=== PATIENT | male | born 1950 | race Caucasian/White ===

== ENCOUNTER → 2017-04-02 | Outpatient (CLI) | payer BC, OTHER ==
--- NOTE | 2017-04-02 15:21 | CR ---
EXAMINATION: Left hand HISTORY: Contusion COMPARISON: 03/19/2017 TECHNIQUE: 3 views FINDINGS: There is no acute osseous abnormality, dislocation, or fracture identified. Bone mineraliz ation appears grossly normal. Mild osteophytic changes are noted within the interphalangeal joints a nd MCP joints. This is most prominent at the first MCP joint. There is no fracture or acute osseous abnormality. The radiocarpal alignment is preserved. Dorsal soft tissue swelling is noted overlying the hand. IMPRESSION: Soft tissue swelling and degenerative changes without acute osseous abnormality.
== END ==
LOC: MW.CHPS 11:23
PROVIDERS: ATTEND Plastic Surgery
DX: S60.222A Contusion of left hand, initial encounter (principal); R22.32 Localized swelling, mass and lump, left upper limb
CPT/HCPCS: 73130-26-LT; 73130-LT

== ENCOUNTER 2023-02-11 12:06 | Day surgery (SDC) | payer MEDICARE, BC, OTHER ==
[~2023-02-11 12:06] MED LIST: Lactated Ringers 1,000 ML IV SCH
[2023-02-11] MEDS ORDERED: Lidocaine 2% 5 ML SDV ONE (12:53)
[2023-02-11] MEDS ORDERED: Propofol 200 MG/20 ML SDV ONE (12:53)
[2023-02-11] MEDS ORDERED: Lactated Ringers 1,000 ML IV SCH (13:30)
[2023-02-11 15:13] VITALS: BP 98/56; PULSE 76
== END 2023-02-11 14:20 | disposition home or self-care (01) ==
LOC: MW.SDS 12:06
PROVIDERS: ATTEND Surgery
DX: D12.8 Benign neoplasm of rectum (principal); K57.30 Diverticulosis of large intestine without perforation or abscess without bleeding; M06.9 Rheumatoid arthritis, unspecified; N42.9 Disorder of prostate, unspecified; G47.30 Sleep apnea, unspecified; N40.0 Benign prostatic hyperplasia without lower urinary tract symptoms; Z85.118 Personal history of other malignant neoplasm of bronchus and lung; Z79.899 Other long term (current) drug therapy; Z98.890 Other specified postprocedural states; Z87.891 Personal history of nicotine dependence; Z87.19 Personal history of other diseases of the digestive system; Z90.2 Acquired absence of lung [part of]; Z81.1 Family history of alcohol abuse and dependence; Z90.49 Acquired absence of other specified parts of digestive tract
CPT/HCPCS: 45385; 88305; J2704; J7120; 00811; J3490